=== PATIENT | female | born 1985 ===

== ENCOUNTER 2019-04-04 16:26 | Emergency (ER) | payer SELFPAY ==
[~2019-04-04 16:26] MED LIST: Iopamidol-370 76% 500 ML 1 ML ONE
[2019-04-04] MEDS ORDERED: Lorazepam 2 MG/ML VIAL ONE (16:31)
--- NOTE | 2019-04-04 16:38 | CT ---
CT head noncontrast HISTORY: Altered mental status. Left-sided deficit. Dysphagia. FINDINGS: There is no evidence of acute intracranial hemorrhage or infarct. The ventricles appear nor mal in size, shape and position. There is no mass effect or shift of midline structures. Visualized paranasal sinuses remain well aerated. IMPRESSION: Normal exam. Findings were called to Dr. Vasquez in the emergency department at 1633 hours. Code CR.
--- NOTE | 2019-04-04 16:56 | CT ---
CT arteriogram neck with IV contrast and 3-D imaging CT arteriogram head with IV contrast and 3-D imaging CT brain with IV contrast HISTORY: Altered mental status. Aphasia. Left-sided deficit. FINDINGS: Bovine origin of the great vessels at the aortic arch. No significant plaque evident. Good flow into each cerebral and cerebellar system. Each internal carotid artery is widely patent. No significant plaque at the carotid bifurcations. There is retropharyngeal medial deviation of the left internal carotid artery. [place] is intact. Good flow into each cerebral and cerebellar system. No abnormal enhancing brain lesions evident. IMPRESSION: Normal exam. Findings were called to Dr. Vasquez in the emergency department at 1649 hours. Code CR.
[2019-04-04 17:16] LABS: #Eosinphils 0.1 thou/uL (0.0-0.7); #Lymphocytes 1.8 thou/uL (1.20-3.40); #Monocytes 0.7 thou/uL (0.11-0.59); #Neutrophils 6.2 thou/uL (1.40-6.50); %Basophils 0.5 % (0.0-1.0); %Eosinophils 1.6 % (0.0-10.0); %Lymphocytes 20.4 % (21.0-51.0); %Monocytes 7.7 % (0.0-10.0); %Neutrophils 69.8 % (42.0-75.0); Hemoglobin 12.5 g/dL (12.0-16.0); Mean Corpuscular HGB CONC 32.7 g/dL (32.0-36.0); Mean Corpuscular Hemoglobin 26.7 pg (27.0-31.0); Mean Corpuscular Volume 81.5 fL (78.0-98.0); Mean Platelet Volume 10.6 fL (7.4-10.4); Platelet Count 160 thou/uL (130-400); RBC Distribution Width 12.4 % (11.5-14.5); White Blood Cell (WBC) Count 8.8 thou/uL (4.8-10.8)
[2019-04-04] MEDS ORDERED: Metoclopramide HCl 10 MG/2 ML VIAL ONE (17:46)
[2019-04-04] MEDS ORDERED: diphenhydrAMINE 50 MG/ML VIAL ONE (17:46)
--- NOTE | 2019-04-04 18:18 | RAD ---
PORTABLE CHEST ONE VIEW: 04/04/19 at 5:25 p.m. HISTORY: Stroke alert. FINDINGS: the heart size is normal. No focal areas of consolidation, pneumothoraces, or pleural effusions are s een. IMPRESSION: No radiographic evidence of acute cardiopulmonary process. POS: DAVIDA
--- NOTE | 2019-04-04 19:03 | MRI ---
MRI BRAIN WITHOUT CONTRAST: 04/04/19 INDICATIONS: Stroke alert, left side deficit according to history from CT scan earlier today. FINDINGS: Ventricles have normal size and position. No evidence of restricted diffusion. There is no evidence o f mass or edema. There is no evidence of acute infarct. There is no evidence of white matter abnormal ity. No evidence of hemorrhage. Intracranial internal carotid arteries and proximal cerebral arteries demonstrate flow voids. Paranas al sinuses are clear. IMPRESSION: Unremarkable MRI of brain. POS: OFF
[2019-04-04 19:49] LABS: ALT (SGPT) 25 U/L (8-55); AST (SGOT) 24 U/L (5-34); Albumin 4.1 g/dL (3.5-5.0); Alkaline Phosphatase 49 U/L (40-110); Anion Gap 14 mmol/L (10-20); BUN (Urea Nitrogen) 8 mg/dL (7.0-18.7); Bilirubin, Total 0.4 mg/dL (0.2-1.2); CK (CPK) 111 U/L (29-168); Calc. Creatinine Clearance 0 mL/min (70-130); Calcium 8.8 mg/dL (7.8-10.44); Carbon Dioxide 19 mmol/L (22-29); Chloride 110 mmol/L (98-107); Estimated GFR-MDRD Greater than 90; Globulin 3.1 g/dL (2.4-3.5); Glucose 91 mg/dL (70-105); Potassium 3.7 mmol/L (3.5-5.1); Protein, Total 7.2 g/dL (6.0-8.3); Sodium 139 mmol/L (136-145)
[2019-04-04] MEDS ORDERED: diphenhydrAMINE 25 MG CAP ONE (21:08)
== END 2019-04-04 21:19 | disposition home or self-care (01) ==
LOC: ERS 16:26
DX: G43.809 Other migraine, not intractable, without status migrainosus (principal); F41.9 Anxiety disorder, unspecified; Z79.1 Long term (current) use of non-steroidal anti-inflammatories (NSAID); F32.9 Major depressive disorder, single episode, unspecified
CPT/HCPCS: 36416; 70450; 70496; 70498; 70551; 71045; 80053; 82550; 84484; 85025; 93005; 94760; 96365; 96366; 96375; J1200; J2060; J2765; Q0163; Q9967